=== PATIENT | male | born 1985 | race Two or more races ===

== ENCOUNTER 2016-08-06 12:36 | Emergency (ER) | payer OTHER ==
[~2016-08-06] VITALS: Ht 152.4 cm; Wt 54.4 kg
[2016-08-06 13:21] VITALS: BP 138/89
[2016-08-06] MEDS ORDERED: IBUPROFEN600 MG ORAL (13:45)
--- NOTE | 2016-08-06 13:45 | Emergency Room Report ---
History of Present Illness General Chief Complaint: Pain Source: Patient Present Illness HPI 30 YO Male presents to the ED c/o right side pain since slip at fall at work yesterday. pt. denies LOC, denies bruising, states pain is exacerbated with twisting of the trunk. denies hematuria or loss of control of his bladder/ urine. denies neck or back pain. He has not taken anything for his symptoms. denies constipation/diarrhea, N/V. denies pmhx. denies numbness tingling or loss of sensation or gross motor movements of the extremities, incontinence of bowel or bladder. Denies CP, Palpitations, LOC, AMS, dizziness, Changes in Vision, Sensation, paresthesias, or a sudden severe headache. Allergies: Coded Allergies: No Known Allergies (Unverified , 08/06/16) Patient History Past Medical History: see triage record Past Surgical History: none Pertinent Family History: none Immunizations: UTD Reviewed Nursing Documentation: PMH: Agreed, PSxH: Agreed Nursing Documentation-PMH Past Medical History: No Stated History Review of Systems All Other Systems: negative except mentioned in HPI Physical Exam Vital Signs Date Time Temp Pulse Resp B/P Pulse Ox O2 Delivery O2 Flow Rate FiO2 08/06/16 12:48 98.2 64 18 131/89 98 08/06/16 13:21 Room Air Sp02 EP Interpretation: reviewed, normal General Appearance: no apparent distress, alert, GCS 15, non-toxic Head: normocephalic, atraumatic Eyes: bilateral eye PERRL, bilateral eye normal inspection ENT: hearing grossly normal, normal pharynx, no angioedema, normal voice Neck: full range of motion, no bony tend, supple/symm/no masses Respiratory: chest non-tender, lungs clear, normal breath sounds, speaking full sentences, other - no ribcage bony ttp Cardiovascular #1: regular rate, rhythm, no edema Gastrointestinal: normal bowel sounds, soft, no guarding, no rebound, tenderness - right lateral/posterior TTP -mild to deep palpation, no hematoma, no bony ttp, Genitourinary: normal inspection, no CVA tenderness Musculoskeletal: back normal, gait/station normal, normal range of motion, non- tender Neurologic: alert, oriented x3, responsive, motor strength/tone normal, sensory intact, speech normal Psychiatric: judgement/insight normal, memory normal, mood/affect normal Skin: normal color, no rash, warm/dry, well hydrated Lymphatic: no adenopathy Medical Decision Making PA Attestation Dr. Sauer is my supervising Physician whom patient management has been discussed with. Diagnostic Impression: Primary Impression: Contusion of soft tissue Additional Impressions: Muscle strain Hx of fall ER Course Pt. presents to the ED c/o right side pain since slip at fall at work yesterday. pt. denies LOC, denies bruising, states pain is exacerbated with twisting of the trunk. denies hematuria or loss of control of his bladder/ urine. denies back pain. He has not taken anything for his symptoms. Ddx considered but are not limited to Fracture, dislocation, contusion, Sprain/ Strain/Spasm, Epidural abscess, Neoplastic mets. Vital signs: are WNL, pt. is afebrile H&PE are most consistent with soft tissue contusion, no bony tenderness, no hematomas noted. muscle strain also suspected pt. has discomfort with twisting of the trunk. ORDERS: - X-ray not warranted at this time with benign PE, and HPI. ED INTERVENTIONS: - 600mg Motrin PO Re-Evaluation: pt. states pain has subsided with ED interventions -d/w pt. that treatment will consist of conservative therapy and light duty. d/ w pt. to return to ED with worsening or new symptoms. DISCHARGE: At this time pt. is stable for d/c to home. Will provide printed patient care instructions, and any necessary prescriptions. Care plan and follow up instructions have been discussed with the patient prior to discharge. Last Vital Signs Date Time Temp Pulse Resp B/P Pulse Ox O2 Delivery O2 Flow Rate FiO2 08/06/16 13:21 98.2 78 18 138/89 98 Room Air Disposition: HOME, SELF-CARE Condition: Stable Scripts Ibuprofen* (MOTRIN*) 600 Mg Tablet 600 MG ORAL THREE TIMES A DAY, #30 TAB 0 Refills Prov: Beverly Taylor 08/06/16 Referrals: NOT CHOSEN [facility]/MD,REFERRING (PCP) Departure Forms: Return to Work Return to Work Date: August 08, 2016 Work Restrictions: No Heavy Lifting, No Prolonged Standing Other Restrictions: light duty x 1 week. Return to Full Activity: August 15, 2016 Patient Instructions: Contusion, [id number], Muscle Strain, [id number] Additional Instructions: Take medications as directed. Follow up with PCP in 3-5 days Return sooner to ED if new symptoms occur, or current symptoms become worse. - Please note that this Emergency Department Report was dictated using [employer] Partners[employer] engineer technology software, occasionally this can lead to erroneous entry secondary to interpretation by the dictation equipment. Beverly Taylor August 06, 2016 13:45
[2016-08-06 14:06] VITALS: BP 138/89
== END 2016-08-06 14:09 | disposition home or self-care (01) ==
LOC: EMR 13:00
DX: S20.219A Contusion of unspecified front wall of thorax, initial encounter (principal); T14.90 Injury, unspecified; W01.0XXA Fall on same level from slipping, tripping and stumbling without subsequent striking against object, initial encounter; Y93.9 Activity, unspecified; Y99.0 Civilian activity done for income or pay; Z91.81 History of falling
CPT/HCPCS: 99283